=== PATIENT | female | born 1960 | race Caucasian/White ===

== ENCOUNTER → 2020-03-28 | Outpatient (CLI) | payer OTHER ==
--- NOTE | 2020-03-28 10:30 | Diagnostic Imaging Report ---
EXAMINATION: CHEST 2 VIEWS INDICATION: Cough ^[id number] ^[id number] ^COUGH COMPARISON: None FINDINGS: TUBES and LINES: None. LUNGS: Lungs are well inflated. Perihilar peribronchial hazy opacity could be due to bronchitis. There is no evidence of consolidated pneumonia or pulmonary edema. PLEURA: No pleural effusion or pneumothorax. HEART AND MEDIASTINUM: The cardiomediastinal silhouette is unremarkable. BONES AND SOFT TISSUES: No acute osseous lesion. Soft tissues are unremarkable. UPPER ABDOMEN: No free air under the diaphragm. IMPRESSION: Perihilar peribronchial hazy opacity could be due to bronchitis. Signed by: Dr. Graham Eric M.D. on 03/28/2020 10:27 AM
--- NOTE | 2020-03-29 08:52 | Diagnostic Imaging Report ---
EXAM: BONE MINERAL DENSITY HISTORY: Screening for osteoporosis COMPARISON: None DISCUSSION: Evaluation of the left hip and lumbar spine was performed utilizing DEXA Hologic bone densitometer. The study is technically adequate. The patient's fracture risk is compared to an age-matched control. The patient denies prior surgery/fracture of the spine, hips or forearm. Left hip femoral neck bone mineral density: 0.887 g/cm2, T-score is 0.3, Z-score is 1.5. Left hip total bone mineral density: 0.869 g/cm2, T-score is -0.6, Z-score is 0.2. Lumbar spine total bone mineral density: 1.422 gm/cm2, T-score is 3.4, Z-score is 4.6. Lumbar spine bone mineral density may be falsely elevated secondary to sclerosis. Impression: Bone mineralization by WHO Classification is normal, the fracture risk is not increased. Signed by: Dr. Cipriano Olguin M.D. on 03/29/2020 8:49 AM
== END ==
LOC: RAD 09:41
PROVIDERS: ATTEND Internal Medicine
DX: Z12.31 Encounter for screening mammogram for malignant neoplasm of breast (principal); Z13.820 Encounter for screening for osteoporosis; I65.23 Occlusion and stenosis of bilateral carotid arteries; I10 Essential (primary) hypertension; R73.9 Hyperglycemia, unspecified; R05 Cough
CPT/HCPCS: 71046; 77067; 77080; 93306; 93880; 93925

== ENCOUNTER → 2022-10-02 | Outpatient (CLI) | payer OTHER ==
[~2022-10-02] MED LIST: IOPAMIDOL 370 MG/ML 100 ML INFUS..BTL INJ ONE; SODIUM CHLORIDE 0.9% 100 ML ONE
[2022-10-02 14:48] LABS: CREATININE, SERUM 0.82 mg/dL (0.57-1.11)
== END ==
LOC: CT 13:26
PROVIDERS: ATTEND Surgery
DX: I73.9 Peripheral vascular disease, unspecified (principal); E13.9 Other specified diabetes mellitus without complications; I25.10 Atherosclerotic heart disease of native coronary artery without angina pectoris
CPT/HCPCS: 36415; 75635; 82565; 84520; J7050; Q9967

== ENCOUNTER 2025-01-01 14:11 | Emergency (ER) | payer MEDICAID, OTHER ==
[~2025-01-01] VITALS: Ht 172.7 cm; Wt 72.6 kg
[2025-01-01 14:37] VITALS: TEMP 98.2
[2025-01-01 14:45] LABS: BASOPHILS % 0.9 % (0.0-1.0); EOSINOPHILS % 8.0 % (0.0-6.0); LYMPHOCYTES % 41.4 % (18.0-39.1); MONOCYTES % 8.9 % (4.4-11.3); NEUTROPHILS % 40.7 % (38.7-80.0); RED CELL DISTRIBUTION WIDTH 12.5 % (11.7-14.4)
[2025-01-01 15:01] LABS: EST GLOMERULAR FILTRATION RATE 96 ML/MIN (>=60)
[2025-01-01] MEDS ORDERED: IOPAMIDOL 370 MG/ML 100 ML INFUS..BTL INJ ONE (15:09)
[2025-01-01 17:44] VITALS: PULSE 62; RESP 18; O2SAT 99
[2025-01-01] MEDS ORDERED: PREDNISONE20 MG PO (18:26)
[2025-01-01] MEDS ORDERED: AZITHROMYCIN250 MG PO (18:26)
[2025-01-01] MEDS ORDERED: VENTOLIN HFA18 GM INH (18:26)
== END 2025-01-01 18:30 | disposition home or self-care (01) ==
LOC: ER 14:18
DX: R04.2 Hemoptysis (principal); J18.9 Pneumonia, unspecified organism; R91.8 Other nonspecific abnormal finding of lung field; I10 Essential (primary) hypertension; R73.03 Prediabetes; E78.5 Hyperlipidemia, unspecified; R94.31 Abnormal electrocardiogram [ECG] [EKG]; F17.210 Nicotine dependence, cigarettes, uncomplicated
CPT/HCPCS: 36415; 71260; 80053; 84484; 85025; 93005; 99284; Q9967